=== PATIENT | male | born 1955 | race African-American/Black ===

== ENCOUNTER 2022-12-13 18:35 | Emergency (ER) | payer SELFPAY ==
[~2022-12-13] VITALS: Ht 172.7 cm; Wt 64.0 kg
[~2022-12-13 18:35] MED LIST: NO MEDS
[2022-12-13 18:41] VITALS: BP 188/104
[2022-12-13] MEDS ORDERED: ONDANSETRON HCL 4MG/2ML INJ IV STA (18:44)
[2022-12-13] MEDS ORDERED: MORPHINE SULFATE 4 MG/ML CPJ (NOT FOR IM USE) IV STA (18:44)
[2022-12-13] MEDS ORDERED: ACETAMINOPHEN 325MG TABLET PO STA (18:44)
[2022-12-13] MEDS ORDERED: SODIUM CHLORIDE 0.9% 1,000 ML IV ONE (18:45)
[2022-12-13 19:13] LABS: BASOPHILS % 0.4 % (0.0-2.0); EOSINOPHILS % 1.3 % (0.0-5.0); HEMATOCRIT. 42.4 % (42.0-52.0); HEMOGLOBIN. 14.6 g/dL (14.0-18.0); LYMPHOCYTES % 21.5 % (20.0-50.0); MEAN CORPUSCULAR HEMOGLOBIN 31.6 pg (28.0-32.0); MEAN CORPUSCULAR VOLUME 91.9 fL (80.0-94.0); MEAN PLATELET VOLUME 7.9 fl (7.4-10.4); MONOCYTES % 14.1 % (2.0-8.0); NEUTROPHILS % 62.7 % (40.0-76.0); PLATELET 305 x1000/uL (130-400); RED BLOOD CELL COUNT 4.61 mill/uL (4.7-6.1); RED CELL DISTRIBUTION WIDTH 13.7 % (11.6-14.6)
[2022-12-13 19:27] LABS: PROTHROMBIN TIME 10.4 sec (9.6-11.0)
[2022-12-13 19:29] LABS: CHLORIDE 98 mEq/L (98-107)
[2022-12-13 19:37] LABS: ETHANOL BLOOD < 10 mg/dL
[2022-12-13 19:56] LABS: CLARITY URINE CLEAR (CLEAR); COLOR URINE YELLOW (YELLOW); KETONES URINE NEGATIVE (NEGATIVE); LEUKOCYTE ESTERASE URINE NEGATIVE (NEGATIVE); NITRITE URINE NEGATIVE (NEGATIVE); OCCULT BLOOD URINE 2+ (NEGATIVE); PROTEIN URINE TRACE (NEGATIVE); SPECIFIC GRAVITY URINE 1.017 (1.005-1.030); UROBILINOGEN URINE 0.2 E.U./dL (0.2-1.0)
[2022-12-13 20:16] LABS: *AMPHETAMINES SCREEN URINE NEGATIVE (NEGATIVE); *BARBITURATES SCREEN URINE NEGATIVE (NEGATIVE); *BENZODIAZEPINES SCREEN URINE NEGATIVE (NEGATIVE); *COCAINE SCREEN URINE NEGATIVE (NEGATIVE); CANNABINOID URINE SCREEN PRESUMTIVE POSITIVE (NEGATIVE); METHADONE URINE SCREEN NEGATIVE (NEGATIVE); OPIATES URINE SCREEN NEGATIVE (NEGATIVE); PHENCYCLIDINE URINE SCREEN NEGATIVE (NEGATIVE)
[2022-12-13] MEDS ORDERED: ALBU6.7H3 INH (20:49)
[2022-12-13] MEDS ORDERED: BACL-141 MT (20:49)
[2022-12-13] MEDS ORDERED: ACET-2708 MT (20:49)
[2022-12-13] MEDS ORDERED: AMOX1TAB16 MT (20:49)
[2022-12-13] MEDS ORDERED: LIDO700A15 TP (20:49)
== END 2022-12-13 21:25 | disposition home or self-care (01) ==
LOC: ER 18:35
DX: R10.9 Unspecified abdominal pain (principal); J18.9 Pneumonia, unspecified organism; I10 Essential (primary) hypertension; Z79.899 Other long term (current) drug therapy; F12.10 Cannabis abuse, uncomplicated
CPT/HCPCS: 36415; 71045; 74176; 80053; 80305; 80320; 81003; 83605; 83690; 85025; 85610; 93005; 99285; J7030; G0480